=== PATIENT | female | born 1980 | race Caucasian/White ===

== ENCOUNTER → 2017-12-28 16:29 | Outpatient (CLI) | payer OTHER, SELFPAY ==
--- NOTE | 2017-12-28 16:32 | DI.RAD.S_ITS ---
PROCEDURE: XR CERVICAL SPINE 2V OR 3V INDICATIONS: neck and shoulder pain TECHNIQUE: 3 view(s) of the cervical spine were acquired. COMPARISON: None. FINDINGS: Bones: No fractures or dislocations to the T1 level. The lateral masses of C1 appear intact on the odontoid view. No suspicious bony lesions. Soft tissues: No prevertebral soft tissue swelling. IMPRESSION: No trauma found, no subluxation seen. No significant degenerative change identified. Dictated by: Raf Love M.D. on 12/28/2017 at 17:08 Approved by: Raf Love M.D. on 12/28/2017 at 17:08
== END ==
PROVIDERS: Family Provider Family Medicine; PCP Family Medicine; Visit Provider Family Medicine
DX: M54.2 Cervicalgia (principal); M25.519 Pain in unspecified shoulder
CPT/HCPCS: 72040

== ENCOUNTER → 2017-12-30 10:49 | Outpatient (CLI) | payer OTHER, SELFPAY | PROVIDERS: Family Provider Family Medicine; PCP Family Medicine; Visit Provider Family Medicine | DX: M54.2 Cervicalgia (principal); M25.519 Pain in unspecified shoulder | CPT/HCPCS: 95909 ==

== ENCOUNTER 2018-01-10 16:08 | Emergency (ER) | payer OTHER, SELFPAY ==
[2018-01-10 16:18] VITALS: BP 147/97; PULSE 82; RESP 22; TEMP 36.8; O2SAT 97
--- NOTE | 2018-01-10 17:26 | DI.RAD.S_ITS ---
PROCEDURE: XR CHEST 2V INDICATIONS: sob TECHNIQUE: 2 views of the chest were acquired. COMPARISON: [facility], , CHEST 1 VIEW, 12/11/2014, 21:14. FINDINGS: Surgical changes and devices: None. Lungs and pleura: No pleural effusions or pneumothorax. Lungs are clear. Mediastinum: Mediastinal contours are normal. Heart size is normal. Bones and chest wall: No suspicious bony abnormalities. Soft tissues appear unremarkable. IMPRESSION: 1. No acute cardiopulmonary disease. Dictated by: Vladimir Sauer M.D. on 01/10/2018 at 18:35 Approved by: Vladimir Sauer M.D. on 01/10/2018 at 18:35
--- NOTE | 2018-01-10 18:17 | ED_ITS ---
HPI - SOB/Dyspnea <DARRELL Perez - Last Filed: 01/10/18 22:04> General Chief Complaint: Shortness of Breath/Dyspnea Stated Complaint: NOT SURE WHAT IS GOING ON SOB Time Seen by Provider: 01/10/18 18:00 History of Present Illness 37-year-old female with history of anxiety and panic attacks here for having chest pain on and off over the past couple of weeks. She believes it is her anxiety that is causing this. She has been treated by her primary care provider with Celexa which she states that she has not taken over the past week as she was not happy with side effects she is having. She has also been using Ativan to control her symptoms. She reports having increased stress over the past few months due to family illnesses and stress at work. She has not been able to get into a primary care provider for further treatment. She reports that she had a padded attack earlier today however she feels more relaxed that she did earlier today she denies any chest pain or shortness of breath at this time. Related Data Previous Rx's Medication Instructions Recorded citalopram [Celexa] 0 PO QDAY #90 tab 03/24/17 cyclobenzaprine 0 mg PO TID PRN #30 tab 03/24/17 hydrochlorothiazide 25 mg PO Q DAY #90 tab 03/24/17 doxycycline hyclate 100 mg PO BID #28 cap 06/01/17 lorazepam [Ativan] 0.5 mg PO BID #30 tab 11/03/17 tramadol 50 mg PO Q8HP PRN #30 tab 11/03/17 lorazepam 1 mg tablet 1 mg PO BID #30 tab 12/30/17 Allergies Allergy/AdvReac Type Severity Reaction Status Date / Time bupropion [BUPROPION] Allergy Mild PANIC Verified 01/10/18 16:22 ATTACKS Penicillins [PENICILLINS] Allergy Mild VOMITTING Verified 01/10/18 16:22 Review of Systems <DARRELL Perez - Last Filed: 01/10/18 22:04> Constitutional Denies chills, Denies fatigue, Denies fever(s), Denies lethargy and Denies weakness Eyes Denies change in vision, Denies eye discharge, Denies irritation and Denies loss of vision Cardiovascular Reports dyspnea Respiratory Reports dyspnea Gastrointestinal Gastrointestinal: Denies abdominal pain, Denies change in bowel habits, Denies diarrhea, Denies nausea and Denies vomiting Genitourinary Denies hematuria, Denies flank pain, Denies urinary incontinence and Denies urinary urgency Musculoskeletal Denies back pain, Denies muscle weakness, Denies numbness and Denies tingling Integumentary/Breasts Denies pruritus, Denies erythema, Denies rash and Denies wounds Neurologic Denies loss of vision, Denies numbness, Denies tingling and Denies weakness Psychiatric Reports anxiety Endocrine Denies fatigue and Denies flushing Hematologic/Lymphatic Denies easy bruising Exam <DARRELL Perez - Last Filed: 01/10/18 22:04> Initial Vital Signs Initial Vital Signs: Vital Signs Temperature 98.3 F 01/10/18 16:18 Pulse Rate 82 01/10/18 16:18 Respiratory Rate 22 01/10/18 16:18 Blood Pressure 147/97 H 01/10/18 16:18 Pulse Oximetry 97 01/10/18 16:18 Const General: cooperative and well developed Nutritional Appearance: well nourished Orientation: alert, awake, oriented x3 and not confused [facility] Mouth: oral mucosae normal, oropharynx normal and moist mucous membranes Eyes Sclera: sclerae normal Cornea: corneas normal Pupils: PERRL EOM: EOM intact bilaterally Resp Effort & Inspection: normal respiratory effort, able to speak in complete sentences, no respiratory distress and no use of accessory muscles Auscultation: clear to auscultation bilaterally, no rales, no rhonchi and no wheezes Cardio Rate: regular rate Rhythm: regular rhythm Heart Sounds: no click, no gallops, no murmurs and no rubs Pulses: normal peripheral pulses Skin General: no rashes or lesions noted, No jaundice and No petechiae Neuro General: alert, oriented x3, gait normal and no focal motor deficits Speech: speech normal Psych Appearance: well kempt Mental Status: mental status grossly normal Attitude: cooperative Thought Content: normal and suicidality Judgment: judgment good <Victorino Bruce DO - Last Filed: 01/11/18 02:24> Initial Vital Signs Initial Vital Signs: Vital Signs Temperature 98.3 F 01/10/18 16:18 Pulse Rate 82 01/10/18 16:18 Respiratory Rate 22 01/10/18 16:18 Blood Pressure 147/97 H 01/10/18 16:18 Pulse Oximetry 97 01/10/18 16:18 Course <DARRELL Perez - Last Filed: 01/10/18 22:04> Orders Ordered: ED Orders 01/10/18 17:26 XR chest 2V Stat Vital Signs - 8 hr 01/10/18 18:48 Pulse Rate 62 Respiratory Rate 15 Blood Pressure [Right Arm] 110/73 Pulse Oximetry 99 <Victorino Bruce, DO - Last Filed: 01/11/18 02:24> Orders Ordered: ED Orders 01/10/18 17:26 XR chest 2V Stat Vital Signs - 8 hr 01/10/18 18:48 Pulse Rate 62 Respiratory Rate 15 Blood Pressure [Right Arm] 110/73 Pulse Oximetry 99 MDM - SOB/Dyspnea <DARRELL Perez - Last Filed: 01/10/18 22:04> MDM Narrative Medical decision making narrative: Patient with no symptoms at this time. Signs and symptoms presents as anxiety and panic attack. She is encouraged to use her Ativan for panic attacks and to either consider taking the Celexa or talk to primary care provider for do changed to a different SSRI to help control her anxiety. She is also encouraged to use relaxation techniques such as breathing exercises or aroma therapy to also help. Also discussed finding counselor to discuss her symptoms with as well. For any worsening symptoms return to the emergency room. Discharge Plan Departure Patient Disposition: Home, Self-Care Clinical Impression: Anxiety Discharge Date/Time: 01/10/18 18:50 Interventions: ED Discharge Assessment Last Done: 01/10/18 18:46 Instructions: DI for Anxiety -- Adult Activity Restrictions/Additional Instructions: The glandular feeling better at this time in the ear symptoms have resolved. Your signs and symptoms over the past few weeks present as anxiety related. Continue to use medications as prescribed if not the Celexa that I would talk with my primary care provider and discuss another SSRI. Try relaxation techniques such as breathing exercises, aroma therapy etc... Consider counselor to help deal with symptoms. For any worsening symptoms return to the emergency room. Follow up with primary care provider Prescriptions: No Action cyclobenzaprine 10 MG tablet PO TID PRNQty: 30 RF: 3 citalopram [Celexa] 20 MG tablet PO QDAY Qty: 90 RF: 3 hydrochlorothiazide 25 MG tablet 25 mg PO Q DAY Qty: 90 RF: 3 doxycycline hyclate 100 MG capsule 100 mg PO BID Qty: 28 RF: 0 tramadol 50 MG tablet 50 mg PO Q8HP PRNQty: 30 RF: 0 lorazepam [Ativan] 0.5 MG tablet 0.5 mg PO BID Qty: 30 RF: 2 lorazepam 1 mg tablet 1 mg PO BID Qty: 30 RF: 2 Referrals: Brain Marks MD [Primary Care Provider] - <Victorino Bruce DO - Last Filed: 01/11/18 02:24> Cosign ED Attending Luanature Attestation: I was immediately available in the department for consultation. Documentation has been reviewed. I agree with assessment and plan.
[2018-01-10 18:48] VITALS: BP 110/73; PULSE 62; RESP 15; O2SAT 99
== END 2018-01-10 18:50 | disposition home or self-care (01) ==
PROVIDERS: Emergency Provider Nurse Practitioner Family; Family Provider Family Medicine; PCP Family Medicine
DX: F41.9 Anxiety disorder, unspecified (principal)
CPT/HCPCS: 71046; 99282; 99283

== ENCOUNTER → 2018-03-09 11:11 | Outpatient (CLI) | payer OTHER, SELFPAY ==
[2018-03-09 14:35] LABS: Add Manual Diff / Slide Review NO; Basophils Percent Auto 0.5 % (0-2); Eosinophils Percent Auto 1.1 % (2-4); Hematocrit 42.4 % (36-46); Hemoglobin 14.7 g/dL (12.0-16.0); Lymphocytes Percent Auto 32.4 % (25-40); Mean Corpuscular HGB Conc 34.6 % (30-36); Mean Corpuscular Hemoglobin 30.1 PG (26-34); Neutrophils Absolute Auto 5500 /uL (3000-5900); Platelet Count 270 X10^3/uL (150-400); Red Blood Cell Count 4.88 X10^6/uL (4.0-5.2); Red Cell Distribution Width 12.4 % (11.6-14.8); White Blood Cell Count 9.3 X10^3/uL (4.5-11.0)
[2018-03-09 16:47] LABS: Carbon Dioxide 28 mmol/L (22-32); Chloride 97 mmol/L (98-107); Potassium 4.1 mmol/L (3.4-5.1); Sodium 138 mmol/L (137-145)
[2018-03-09 16:48] LABS: Alanine Aminotransferase 25 IU/L (9-52); Albumin 4.7 g/dL (3.5-5.0); Albumin Globulin Ratio 1.7 (1.0-2.8); Alkaline Phosphatase 41 U/L (38-126); Amylase 69 U/L (30-110); Aspartate Aminotransferase 23 IU/L (14-36); BUN Creatinine Ratio 25.7 (6-22); Bilirubin Total 0.5 mg/dL (0.2-1.3); Blood Urea Nitrogen 18 mg/dL (7-17); Estimated Glomerular Filt Rate > 60.0 mL/min (>60); Globulin 2.8 g/dL (1.7-4.1); Glucose 87 mg/dL (70-100); Total Protein 7.5 g/dL (6.3-8.2)
[2018-03-09 16:49] LABS: Lipase 204 U/L (23-300)
== END ==
PROVIDERS: PCP Family Medicine; Visit Provider Family Medicine
DX: R10.9 Unspecified abdominal pain (principal)
CPT/HCPCS: 36415; 80053; 82150; 83013; 83690; 85025

== ENCOUNTER → 2018-03-11 08:38 | Outpatient (CLI) | payer OTHER, SELFPAY ==
--- NOTE | 2018-03-11 08:40 | DI.US.S_ITS ---
PROCEDURE: US ABDOMEN COMPLETE INDICATIONS: right upper quadrant abdominal pain TECHNIQUE: Real-time scanning was performed of the abdominal and retroperitoneal organs, with image documentation. COMPARISON: [facility], US, ABDOMEN COMPLETE, 10/16/2008, 7:18. [facility], CT, ABDOMEN/PELVIS WITH CONTRAST, 02/23/2010, 14:12. FINDINGS: Liver: Liver is normal in size and homogeneous in echotexture. Gallbladder: Gallbladder is clear with normal wall thickness. Biliary ducts: Intrahepatic bile ducts are non-dilated. Extrahepatic bile duct caliber measures 4 mm. Normal is 6-7 mm or less in diameter, or 10 mm or less post-cholecystectomy. Pancreas: Visualized portions of the pancreas are sonographically normal. Spleen: Spleen is normal in size and homogeneous in echotexture. Kidneys: Kidneys are normal in size and echotexture. Right kidney measures 11.2 cm long; left kidney measures 11.7 cm long. No hydronephrosis or nephrolithiasis. No solid masses. Aorta: Visualized aorta is normal in caliber at less than 3 cm. Iliacs: Proximal common iliac arteries are normal in caliber at less than 2.5 cm. IVC: Intrahepatic inferior vena cava is patent. Miscellaneous: No free abdominal fluid. IMPRESSION: Normal abdomen ultrasound. Cause of right upper quadrant pain not seen. Dictated by: Kevin Lee M.D. on 03/11/2018 at 9:58 Approved by: Kevin Lee M.D. on 03/11/2018 at 10:00
== END ==
PROVIDERS: Family Provider Family Medicine; PCP Family Medicine; Visit Provider Family Medicine
DX: R10.11 Right upper quadrant pain (principal)
CPT/HCPCS: 76700

== ENCOUNTER 2018-03-13 16:19 | Emergency (ER) | payer OTHER, SELFPAY ==
--- NOTE | 2018-03-13 16:24 | ED.HA ---
HPI - Headache <DARRELL Perez - Last Filed: 03/13/18 22:28> General Chief Complaint: Headache Stated Complaint: STATES HEADAHCE BEHIND RIGHT EYE,BLURRY VISION Time Seen by Provider: 03/13/18 16:21 Source: patient Mode of arrival: ambulatory Limitations: no limitations History of Present Illness HPI Narrative: 37-year-old female complains of having right-sided headache for the last month. She denies any stressors or relievers of the headache. She reports that the headache has worsened over the past week. She also reports she has pain into her right ear and to her right mastoid area. No fevers no chills. She states she has had some nausea however no vomiting. She does state that she has a history of having migraine headaches when she was young she has not had any for several years. Positive p.o. intake. She denies any head trauma. She does state that she has had increased stress over the past several weeks. She denies any drainage from the right ear. She does report having seasonal allergies and having some sinus congestion over the same timeframe. MD Complaint: headache Related Data Previous Rx's Medication Instructions Recorded cyclobenzaprine 0 mg PO TID PRN #30 tab 03/24/17 hydrochlorothiazide 25 mg PO Q DAY #90 tab 03/24/17 tramadol 50 mg PO Q8HP PRN #30 tab 11/03/17 lorazepam 1 mg tablet 1 mg PO BID #120 tab 01/12/18 hydroxyzine pamoate 25 mg capsule See Label Instructions PO TID-QID 02/14/18 PRN #120 cap omeprazole 20 mg capsule,delayed 20 mg PO BID #60 cap 03/08/18 release ondansetron 4 mg PO Q6-8H PRN #10 tab 03/13/18 Allergies Allergy/AdvReac Type Severity Reaction Status Date / Time bupropion [BUPROPION] Allergy Mild PANIC Verified 02/28/18 11:00 ATTACKS Penicillins [PENICILLINS] Allergy Mild VOMITTING Verified 02/28/18 11:00 Review of Systems <DARRELL Perez - Last Filed: 03/13/18 22:28> Constitutional Denies chills, Denies fever(s), Reports headache(s), Denies lethargy and Denies weakness Eyes Denies change in vision, Denies eye discharge, Denies irritation and Denies loss of vision ENT Ears, Nose, Mouth, and Throat: Reports otalgia and Reports headache(s) Cardiovascular Denies chest pain, Denies irregular heart rhythm, Denies lightheadedness, Denies palpitations, Denies dyspnea, Denies dyspnea on exertion and Denies orthopnea Respiratory Denies cough, Denies dyspnea, Denies dyspnea on exertion and Denies wheezing Gastrointestinal Gastrointestinal: Denies abdominal pain, Denies change in bowel habits, Denies diarrhea, Denies nausea and Denies vomiting Genitourinary Denies hematuria, Denies flank pain, Denies urinary incontinence and Denies urinary urgency Musculoskeletal Denies back pain, Denies muscle weakness, Denies numbness and Denies tingling Integumentary/Breasts Denies pruritus, Denies erythema, Denies rash and Denies wounds Neurologic Denies confusion, Reports headache(s), Denies loss of vision, Denies numbness, Denies tingling and Denies weakness Psychiatric Denies anxiety, Denies confusion, Denies depression, Denies homicidal ideation and Denies suicidal ideation Endocrine Denies palpitations Hematologic/Lymphatic Denies easy bruising Allergic/Immunologic Denies wheezing Exam <DARRELL Perez - Last Filed: 03/13/18 22:28> Initial Vital Signs Initial Vital Signs: Vital Signs Temperature 98.0 F 03/13/18 16:29 Pulse Rate 64 03/13/18 16:29 Respiratory Rate 18 03/13/18 16:29 Blood Pressure 143/93 H 03/13/18 16:29 Pulse Oximetry 100 03/13/18 16:29 Const General: cooperative and well developed Nutritional Appearance: well nourished Orientation: alert, awake, oriented x3 and not confused [facility] Head: normocephalic, atraumatic and other (Tenderness on palpation to right mastoid area, no swelling or erythema to the mastoid) Ears: external ears normal and TM's normal bilaterally Nose: external nose normal and No nasal discharge Face and sinus: sinuses nontender, face symmetric, no sinus tenderness and No dry mucous membranes Mouth: oral mucosae normal and moist mucous membranes Teeth and gingiva: dentition normal Throat: tonsils normal and uvula midline Eyes General: appearance normal, both eyes and all related structures Eyelids: eyelids normal Conjunctivae: conjunctivae normal Sclera: sclerae normal Pupils: PERRL EOM: EOM intact bilaterally Neck Neck: normal visual inspection, trachea midline, No lymphadenopathy, No midline deformity and No JVD Lymphatic: No lymphedema Resp Effort & Inspection: normal respiratory effort, able to speak in complete sentences, no respiratory distress and no use of accessory muscles Auscultation: clear to auscultation bilaterally, no rales, no rhonchi and no wheezes Cardio Rate: regular rate Rhythm: regular rhythm Heart Sounds: no click, no gallops, no murmurs and no rubs Skin General: no rashes or lesions noted, No jaundice and No petechiae Neuro General: alert, oriented x3, gait normal and no focal motor deficits Speech: speech normal <DO Misbah Harmon Last Filed: 03/14/18 07:12> Initial Vital Signs Initial Vital Signs: Vital Signs Temperature 98.0 F 03/13/18 16:29 Pulse Rate 64 03/13/18 16:29 Respiratory Rate 18 03/13/18 16:29 Blood Pressure 143/93 H 03/13/18 16:29 Pulse Oximetry 100 03/13/18 16:29 Course <DARRELL Perez - Last Filed: 03/13/18 22:28> Orders Ordered: Discontinued Medications Ketorolac Tromethamine (Toradol) 30 mg IV NOW ONE Stop: 03/13/18 17:08 Last Admin: 03/13/18 17:14 Dose: 30 mg Ondansetron HCl (Zofran) 4 mg IV NOW ONE Stop: 03/13/18 17:08 Last Admin: 03/13/18 17:14 Dose: 4 mg Ondansetron HCl (Zofran Odt Prepack) 1 bottle MISC SEEINSTR ONE Stop: 03/13/18 18:17 Last Admin: 03/13/18 18:18 Dose: 1 bottle Vital Signs - 8 hr 03/13/18 16:29 03/13/18 18:20 Temperature 98.0 F Pulse Rate 64 55 L Respiratory Rate 18 18 Blood Pressure 143/93 H 115/71 Pulse Oximetry 100 96 <Joshua Cox DO - Last Filed: 03/14/18 07:12> Orders Ordered: Discontinued Medications Ketorolac Tromethamine (Toradol) 30 mg IV NOW ONE Stop: 03/13/18 17:08 Last Admin: 03/13/18 17:14 Dose: 30 mg Ondansetron HCl (Zofran) 4 mg IV NOW ONE Stop: 03/13/18 17:08 Last Admin: 03/13/18 17:14 Dose: 4 mg Ondansetron HCl (Zofran Odt Prepack) 1 bottle MISC SEEINSTR ONE Stop: 03/13/18 18:17 Last Admin: 03/13/18 18:18 Dose: 1 bottle Vital Signs - 8 hr 03/13/18 16:29 03/13/18 18:20 Temperature 98.0 F Pulse Rate 64 55 L Respiratory Rate 18 18 Blood Pressure 143/93 H 115/71 Pulse Oximetry 100 96 MDM - Headache <DARRELL Perez - Last Filed: 03/13/18 22:28> Lab Data Result diagrams: 03/13/18 16:45 03/13/18 16:45 Lab Results 03/13/18 03/13/18 Range/Units 16:45 16:45 WBC 12.3 H (4.5-11.0) X10^3/uL RBC 4.90 (4.0-5.2) X10^6/uL Hgb 14.6 (12.0-16.0) g/dL Hct 41.9 (36-46) % MCV 85.6 (80-100) fL MCH 29.9 (26-34) PG MCHC 34.9 (30-36) % RDW 12.6 (11.6-14.8) % Plt Count 276 (150-400) X10^3/uL Neut % (Auto) 62.8 (50-75) % Lymph % (Auto) 28.5 (25-40) % [place] % (Auto) 6.7 (3-14) % Eos % (Auto) 1.5 L (2-4) % Baso % (Auto) 0.5 (0-2) % Neut # (Auto) 7700 H (1505-1290) /uL Sodium 141 (137-145) mmol/L Potassium 3.5 (3.4-5.1) mmol/L Chloride 100 (98-107) mmol/L Carbon Dioxide 27 (22-32) mmol/L BUN 19 H (7-17) mg/dL Creatinine 0.80 (0.52-1.04) mg/dL Estimated GFR > 60.0 (>60) mL/min BUN/Creatinine Ratio 23.8 H (6-22) Glucose 96 (70-100) mg/dL Calcium 9.6 (8.4-10.2) mg/dL Total Bilirubin 0.3 (0.2-1.3) mg/dL AST 27 (14-36) IU/L ALT 24 (9-52) IU/L Alkaline Phosphatase 35 L (38-126) U/L Total Protein 7.5 (6.3-8.2) g/dL Albumin 4.8 (3.5-5.0) g/dL Globulin 2.7 (1.7-4.1) g/dL Albumin/Globulin Ratio 1.8 (1.0-2.8) Imaging Data CT scan - head: Radiologist's impression: Patient: Mariann Gordon MR#: [id number] : 1980 Acct:[id number] Age/Sex: 37 / F Date of Service: 03/13/18 Loc: ED Accession Number: [id number] Procedure: CT head/brain w con Ordering Provider: Vipin Chase PROCEDURE: CT HEAD/BRAIN W CON INDICATIONS: Right-sided headache with pain to right ear and mastoid area TECHNIQUE: 4.5 mm thick angled axial sections acquired from the foramen magnum to the vertex after the administration of intravenous contrast, with coronal and sagittal reformats. For radiation dose reduction, the following was used: automated exposure control, adjustment of mA and/or kV according to patient size. COMPARISON: [facility], , MRI HEAD W/O, 12/22/2002, 10:13. FINDINGS: Image quality: Excellent. CSF Spaces: Basal cisterns are patent. No extra-axial fluid collections. Ventricles are normal in size and shape. Brain: No midline shift. No intracranial bleeds or masses. No abnormal intracranial enhancement. Lee-white interface appears normal. Skull and face: Calvarium and visualized facial bones appear intact, without suspicious lesions. Sinuses: Visualized sinuses and mastoids are clear. IMPRESSION: 1. No acute intracranial disease process. 2. Mastoids are clear bilaterally. Dictated by: Rena Cobb MD, PhD on 03/13/2018 at 17:30 Approved by: Rena Cobb MD, PhD on 03/13/2018 at 17:32 MDM Narrative Medical decision making narrative: CBC shows slightly elevated white count of 12 K otherwise CBC and Chem panel were unremarkable. CT the head with contrast was obtained and was negative for any acute findings to the mastoids are intracranially. She was given Zofran in the emergency room which helped with her nausea. Differential between tension type headache or headache with migraine components. Other differential is headache due to congestion secondary to seasonal allergies which she is already taking a antihistamine for. She has cyclobenzaprine at home are any prescribed she may try to see if it helps muscle tension to her neck and back of head for tension-type headache. Plenty of fluids and rest [id number] Tylenol and Motrin. Home to quiet environment. Follow up with primary care provider later this week for re-evaluation. For any worsening symptoms return to the emergency room. <Joshua Cox DO - Last Filed: 03/14/18 07:12> Lab Data Lab Results 03/13/18 03/13/18 Range/Units 16:45 16:45 WBC 12.3 H (4.5-11.0) X10^3/uL RBC 4.90 (4.0-5.2) X10^6/uL Hgb 14.6 (12.0-16.0) g/dL Hct 41.9 (36-46) % MCV 85.6 (80-100) fL MCH 29.9 (26-34) PG MCHC 34.9 (30-36) % RDW 12.6 (11.6-14.8) % Plt Count 276 (150-400) X10^3/uL Neut % (Auto) 62.8 (50-75) % Lymph % (Auto) 28.5 (25-40) % [place] % (Auto) 6.7 (3-14) % Eos % (Auto) 1.5 L (2-4) % Baso % (Auto) 0.5 (0-2) % Neut # (Auto) 7700 H (8513-6767) /uL Sodium 141 (137-145) mmol/L Potassium 3.5 (3.4-5.1) mmol/L Chloride 100 (98-107) mmol/L Carbon Dioxide 27 (22-32) mmol/L BUN 19 H (7-17) mg/dL Creatinine 0.80 (0.52-1.04) mg/dL Estimated GFR > 60.0 (>60) mL/min BUN/Creatinine Ratio 23.8 H (6-22) Glucose 96 (70-100) mg/dL Calcium 9.6 (8.4-10.2) mg/dL Total Bilirubin 0.3 (0.2-1.3) mg/dL AST 27 (14-36) IU/L ALT 24 (9-52) IU/L Alkaline Phosphatase 35 L (38-126) U/L Total Protein 7.5 (6.3-8.2) g/dL Albumin 4.8 (3.5-5.0) g/dL Globulin 2.7 (1.7-4.1) g/dL Albumin/Globulin Ratio 1.8 (1.0-2.8) Discharge Plan Departure Patient Disposition: Home, Self-Care Clinical Impression: Headache Discharge Date/Time: 03/13/18 18:22 Interventions: ED Discharge Assessment Last Done: 03/13/18 18:20 Instructions: DI for Headache Activity Restrictions/Additional Instructions: Laboratory results shows slightly elevated white count otherwise was unremarkable. CT of the head was negative for any acute findings. Differential between migraine/tension or headache secondary to seasonal allergies and nasal congestion. Use [id number] Tylenol Motrin as needed for any discomfort. Zofran is prescribed to help with nausea use as directed. Home to quite environment for rest and plenty of fluids. May use cyclobenzaprine that she would have at home to see if it helps with attention to the neck and back of head. Use antihistamine as already directed for seasonal allergies. Follow up with her primary care provider later this week for re-evaluation. For any worsening symptoms return to the emergency room. Prescription like chronically sent to [facility] Prescriptions: New ondansetron 4 mg tablet,disintegrating 4 mg PO Q6-8H PRN (Reason: nausea and vomiting) Qty: 10 RF: 0 No Action cyclobenzaprine 10 MG tablet PO TID PRNQty: 30 RF: 3 hydrochlorothiazide 25 MG tablet 25 mg PO Q DAY Qty: 90 RF: 3 tramadol 50 MG tablet 50 mg PO Q8HP PRNQty: 30 RF: 0 lorazepam 1 mg tablet 1 mg PO BID Qty: 120 RF: 2 hydroxyzine pamoate 25 mg capsule See Label Instructions PO TID-QID PRN (Reason: anxiety) Qty: 120 RF: 5 omeprazole 20 mg capsule,delayed release(DR/EC) 20 mg PO BID Qty: 60 RF: 5 Referrals: Brain Marks MD [Primary Care Provider] - <Joshua Cox DO - Last Filed: 03/14/18 07:12> Cosign ED Attending Kendra Attestation: I was available for consultation during this patient's emergency department encounter
[2018-03-13 16:29] VITALS: BP 143/93; PULSE 64; RESP 18; TEMP 36.7; O2SAT 100
--- NOTE | 2018-03-13 16:33 | DI.CT.S_ITS ---
PROCEDURE: CT HEAD/BRAIN W CON INDICATIONS: Right-sided headache with pain to right ear and mastoid area TECHNIQUE: 4.5 mm thick angled axial sections acquired from the foramen magnum to the vertex after the administration of intravenous contrast, with coronal and sagittal reformats. For radiation dose reduction, the following was used: automated exposure control, adjustment of mA and/or kV according to patient size. COMPARISON: [facility], , MRI HEAD W/O, 12/22/2002, 10:13. FINDINGS: Image quality: Excellent. CSF Spaces: Basal cisterns are patent. No extra-axial fluid collections. Ventricles are normal in size and shape. Brain: No midline shift. No intracranial bleeds or masses. No abnormal intracranial enhancement. Lee-white interface appears normal. Skull and face: Calvarium and visualized facial bones appear intact, without suspicious lesions. Sinuses: Visualized sinuses and mastoids are clear. IMPRESSION: 1. No acute intracranial disease process. 2. Mastoids are clear bilaterally. Dictated by: Rena Cobb MD, PhD on 03/13/2018 at 17:30 Approved by: Rena Cobb MD, PhD on 03/13/2018 at 17:32
[2018-03-13 17:04] LABS: Add Manual Diff / Slide Review NO; Basophils Percent Auto 0.5 % (0-2); Eosinophils Percent Auto 1.5 % (2-4); Hematocrit 41.9 % (36-46); Hemoglobin 14.6 g/dL (12.0-16.0); Lymphocytes Percent Auto 28.5 % (25-40); Mean Corpuscular HGB Conc 34.9 % (30-36); Mean Corpuscular Hemoglobin 29.9 PG (26-34); Mean Corpuscular Volume 85.6 fL (80-100); Monocytes Percent Auto 6.7 % (3-14); Neutrophils Absolute Auto 7700 /uL (3000-5900); Neutrophils Percent Auto 62.8 % (50-75); Platelet Count 276 X10^3/uL (150-400); Red Cell Distribution Width 12.6 % (11.6-14.8); White Blood Cell Count 12.3 X10^3/uL (4.5-11.0)
[2018-03-13 17:11] LABS: Alanine Aminotransferase 24 IU/L (9-52); Albumin 4.8 g/dL (3.5-5.0); Albumin Globulin Ratio 1.8 (1.0-2.8); Alkaline Phosphatase 35 U/L (38-126); Aspartate Aminotransferase 27 IU/L (14-36); BUN Creatinine Ratio 23.8 (6-22); Bilirubin Total 0.3 mg/dL (0.2-1.3); Blood Urea Nitrogen 19 mg/dL (7-17); Calcium 9.6 mg/dL (8.4-10.2); Carbon Dioxide 27 mmol/L (22-32); Chloride 100 mmol/L (98-107); Estimated Glomerular Filt Rate > 60.0 mL/min (>60); Globulin 2.7 g/dL (1.7-4.1); Glucose 96 mg/dL (70-100); HEMOLYSIS < 15 (0-50); Potassium 3.5 mmol/L (3.4-5.1); Sodium 141 mmol/L (137-145); Total Protein 7.5 g/dL (6.3-8.2)
[2018-03-13] MEDS: ONDANSETRON 4 MG/2 ML INJ IV (17:14)
[2018-03-13] MEDS: KETOROLAC 60 MG/2 ML VIAL 30 MG IV (17:14)
[2018-03-13] MEDS: ONDANSETRON 4 MG ODT PREPACK 1 BOTTLE MISC (18:18)
[2018-03-13 18:20] VITALS: BP 115/71; PULSE 55; RESP 18; O2SAT 96
== END 2018-03-13 18:22 | disposition home or self-care (01) ==
PROVIDERS: Emergency Provider Nurse Practitioner Family; Family Provider Family Medicine; PCP Family Medicine
DX: R51 Headache (principal)
CPT/HCPCS: 36591; 70460; 80053; 81003; 81025; 85025; 96374; 96375; 99283; 99285; J1885; J2405

== ENCOUNTER → 2018-04-21 08:04 | Outpatient (CLI) | payer OTHER, SELFPAY ==
--- NOTE | 2018-04-21 | DI.MG.S_ITS ---
BILATERAL DIGITAL SCREENING MAMMOGRAM 3D/2D WITH CAD: 04/21/2018 CLINICAL: Baseline exam. Routine screening. No prior exams were available for comparison. There are scattered fibroglandular elements in both breasts. Current study was also evaluated with a Computer Aided Detection (CAD) system. No significant masses, calcifications, or other findings are seen in either breast. IMPRESSION: NEGATIVE There is no mammographic evidence of malignancy. A 1 year screening mammogram is recommended. This exam was interpreted at Station ID: [id number]. NOTE: For mammograms, a report in lay terms will be sent to the patient. Approximately 15% of breast malignancies will not be visualized mammographically. In the management of a palpable breast mass, a negative mammogram must not discourage biopsy of a clinically suspicious lesion. Electronically Signed By: Vladimir [email or web address]:04/21/2018 10:08:12 letter sent: Normal Exam ACR BI-RADS Category 1: Negative [id number]
== END ==
PROVIDERS: Family Provider Family Medicine; PCP Family Medicine; Visit Provider Family Medicine
DX: Z12.31 Encounter for screening mammogram for malignant neoplasm of breast (principal)
CPT/HCPCS: 77063; 77067

== ENCOUNTER → 2018-04-26 15:44 | Outpatient (CLI) | payer OTHER, SELFPAY ==
--- NOTE | 2018-04-26 15:45 | DI.MRI.S_ITS ---
PROCEDURE: MR HEAD/BRAIN WO CON INDICATIONS: Headaches. Bilateral upper extremity tremor. Right arm/hand numbness TECHNIQUE: Noncontrast axial T1 spin echo, axial T2 fast spin echo, sagittal and axial FLAIR, coronal T2 fast spin echo, axial gradient echo, axial diffusion and ADC through the brain. COMPARISON: [facility], CT, CT HEAD/BRAIN W CON, 03/13/2018, 16:36. [facility], MR, BRAIN WITH AND WITHOUT CONTRAS, 12/01/2007, 7:41. FINDINGS: Image quality: Excellent. CSF Spaces: Basal cisterns are patent. No extra-axial fluid collections. Ventricles are normal in size and shape. Brain: No intracranial masses or hemorrhage. Lee/white matter interface is normal. Brainstem appears normal. Diffusion-weighted images demonstrate no acute ischemic insult. No areas of encephalomalacia. No GRE weighted abnormalities identified in the brain parenchyma. Normal intravascular flow voids are present. Skull and face: Calvarium has normal marrow signal. Orbits appear normal. Sinuses: Sinuses and mastoids are clear. IMPRESSION: 1. No intracranial disease process. 2. No abnormal intracranial mass 3. No abnormal intracranial signal. Dictated by: Rena Cobb MD, PhD on 04/26/2018 at 16:32 Approved by: Rena Cobb MD, PhD on 04/26/2018 at 16:36
== END ==
PROVIDERS: Family Provider Family Medicine; PCP Family Medicine; Visit Provider Family Medicine
DX: R25.1 Tremor, unspecified (principal); R51 Headache; R20.0 Anesthesia of skin
CPT/HCPCS: 70551

== ENCOUNTER → 2018-06-04 11:38 | Outpatient (CLI) | payer OTHER, SELFPAY | PROVIDERS: Family Provider Family Medicine; PCP Family Medicine; Visit Provider Physician Assistant | DX: N39.0 Urinary tract infection, site not specified (principal) | CPT/HCPCS: 87086 ==

== ENCOUNTER → 2018-06-15 14:02 | Outpatient (CLI) | payer OTHER, SELFPAY ==
[2018-06-15 14:25] LABS: Add Manual Diff / Slide Review NO; Basophils Percent Auto 0.7 % (0-2); Eosinophils Percent Auto 0.8 % (2-4); Hematocrit 44.3 % (36-46); Hemoglobin 14.9 g/dL (12.0-16.0); Lymphocytes Percent Auto 25.8 % (25-40); Mean Corpuscular HGB Conc 33.6 % (30-36); Mean Corpuscular Hemoglobin 29.1 PG (26-34); Mean Corpuscular Volume 86.9 fL (80-100); Neutrophils Absolute Auto 8200 /uL (3000-5900); Neutrophils Percent Auto 67.7 % (50-75); Platelet Count 359 X10^3/uL (150-400); Red Cell Distribution Width 12.4 % (11.6-14.8); White Blood Cell Count 12.1 X10^3/uL (4.5-11.0)
[2018-06-15 14:42] LABS: Erythrocyte Sedimentation Rate 2 MM/HR (0-20)
[2018-06-15 14:46] LABS: Alanine Aminotransferase 32 IU/L (9-52); Albumin 4.7 g/dL (3.5-5.0); Albumin Globulin Ratio 1.7 (1.0-2.8); Alkaline Phosphatase 39 U/L (38-126); Amylase 94 U/L (30-110); Aspartate Aminotransferase 28 IU/L (14-36); Bilirubin Total 0.3 mg/dL (0.2-1.3); Blood Urea Nitrogen 14 mg/dL (7-17); C-Reactive Protein Quant < 0.5 mg/dL (<1.0); Calcium 9.1 mg/dL (8.4-10.2); Carbon Dioxide 27 mmol/L (22-32); Chloride 97 mmol/L (98-107); Estimated Glomerular Filt Rate > 60.0 mL/min (>60); Globulin 2.7 g/dL (1.7-4.1); Glucose 100 mg/dL (70-100); HEMOLYSIS < 15 (0-50); Lipase 241 U/L (23-300); Potassium 3.4 mmol/L (3.4-5.1); Sodium 139 mmol/L (137-145); Total Protein 7.4 g/dL (6.3-8.2)
[2018-06-15 15:37] LABS: Free T3, Triiodothyronine Free 3.29 pg/mL (2.77-5.27); Free T4, Direct Thyroxine 1.04 ng/dL (0.78-2.19); Thyroid Stimulating Hormone 2.22 uIU/mL (0.47-4.68)
[2018-06-15 15:38] LABS: Cortisol Random 9.89 ug/dL
[2018-06-17 15:06] LABS: Adrenocorticotropic Hormone 26 pg/mL (6-50)
== END ==
PROVIDERS: PCP Family Medicine; Visit Provider Family Medicine
DX: F41.9 Anxiety disorder, unspecified (principal)
CPT/HCPCS: 36415; 80053; 82024; 82150; 82533; 83690; 84439; 84443; 84481; 85025; 85651; 86140

== ENCOUNTER → 2018-09-16 15:54 | Outpatient (CLI) | payer OTHER, SELFPAY ==
[2018-09-21 14:34] LABS: Hepatitis B Core IgM Nonreactive (Nonreactive)
[2018-09-23 16:08] LABS: Hepatitis A Antibody IgM NONREACTIVE (NONREACTIVE); Hepatitis Acute Panel Interp 0.01 (NONREACTIVE); Hepatitis B Core Antibody IgM NONREACTIVE (NONREACTIVE); Hepatitis B Surface Antigen NONREACTIVE (NONREACTIVE); Hepatitis C Antibody NONREACTIVE
== END ==
PROVIDERS: PCP Family Medicine; Visit Provider Family Medicine
DX: F32.9 Major depressive disorder, single episode, unspecified (principal); B19.20 Unspecified viral hepatitis C without hepatic coma
CPT/HCPCS: 36415; 80074; 86705

== ENCOUNTER → 2018-09-20 09:57 | Outpatient (CLI) | payer OTHER, SELFPAY ==
[2018-09-20 11:24] LABS: Appearance Urine UA CLOUDY; Bilirubin Urine UA NEGATIVE (NEGATIVE); Color Urine UA YELLOW; Glucose Urine UA NEGATIVE (Negative); Ketones Urine UA NEGATIVE (NEGATIVE); Leukocyte Esterase Urine UA 2+ (NEGATIVE); Nitrite Urine UA NEGATIVE (Negative); Occult Blood Urine UA TRACE-INTACT (Negative); Protein Urine UA NEGATIVE (Negative); Specific Gravity Urine UA 1.015 (1.000-1.035); Urobilinogen Urine UA 0.2 E.U./dL (0.2); pH Urine UA 5.5 (4.5-8.0)
[2018-09-20 11:25] LABS: Bacteria Urine Many (>30); RBC Urine 5-10/HPF (0-5/HPF); Squamous Epithelial Cell Urine 1-5 /HPF; WBC Urine >100/HPF (0-5/HPF)
[2018-09-20 11:26] LABS: Culture Indicated Urine Specimen Cultured
== END ==
PROVIDERS: PCP Family Medicine; Visit Provider Family Medicine
DX: R30.0 Dysuria (principal); R31.9 Hematuria, unspecified
CPT/HCPCS: 81001; 81015; 87077; 87086; 87186

== ENCOUNTER → 2018-09-23 07:36 | Outpatient (CLI) | payer OTHER, SELFPAY ==
--- NOTE | 2018-09-23 | DI.CT.S_ITS ---
PROCEDURE: CT ABDOMEN PELVIS WO/W CON INDICATIONS: HEMATURIA TECHNIQUE: Optional 5 mm thick noncontrast images acquired from the diaphragm to the symphysis pubis. After the administration of intravenous contrast, 5 mm thick images acquired from the diaphragm to the symphysis pubis after a 10-minute delay. 2 mm thick coronal and sagittal reformats were then performed of the kidneys and ureters. For radiation dose reduction, the following was used: automated exposure control, adjustment of mA and/or kV according to patient size. COMPARISON: [facility], CT, ABDOMEN/PELVIS WITH CONTRAST, 02/23/2010, 14:12. FINDINGS: Image quality: Excellent. Lung bases: No acute consolidation. Scattered subsegmental atelectasis and/or scarring. Heart size is normal. Urinary system: Both kidneys are normal in size, without hydronephrosis or nephrolithiasis on pre-contrast images. No perinephric fat stranding. There is normal bilateral renal enhancement. Renal calyces appear normal in morphology when filled with contrast. Opacified portions of both ureters demonstrate normal caliber. Bladder wall thickness is normal. No calcified bladder stones. Other solid organs: Liver is normal in size and enhancement. Gallbladder unremarkable. Biliary system is non dilated. Pancreas enhances normally. Spleen is normal in size and enhancement. No adrenal nodules. Peritoneum and bowel: Bowel loops demonstrate normal wall thickness and caliber. No free fluid or air. Appendix is not clearly identified however no suspicious pericecal inflammatory changes are identified Nodes and vessels: No retroperitoneal or mesenteric adenopathy by size criteria. Aorta and inferior vena cava are normal in size. Abdominal wall: No ventral hernias. Pelvis: No pathologic free pelvic fluid. No inguinal hernias or adenopathy. Bones: No suspicious bony lesions. No vertebral body compression fractures. IMPRESSION: No urolithiasis. No evidence of urinary obstruction. No specific visualized etiology for clinical reported hematuria. Dictated by: Elieser Pop M.D. on 09/23/2018 at 9:06 Approved by: Elieser Pop M.D. on 09/23/2018 at 9:12
[2018-09-23 09:37] LABS: Hep C Virus Ab w/Reflex Quant NEGATIVE s/c (NEGATIVE)
== END ==
PROVIDERS: Family Provider Family Medicine; PCP Family Medicine; Visit Provider Urology
DX: R31.9 Hematuria, unspecified (principal); Z20.5 Contact with and (suspected) exposure to viral hepatitis
CPT/HCPCS: 36415; 74178; 86803; Q9967

== ENCOUNTER → 2019-02-23 08:31 | Outpatient (CLI) | payer OTHER, SELFPAY ==
[2019-02-23 09:05] LABS: Cholesterol 205 mg/dL (140-199); HDL Cholesterol 46 mg/dL (40-60); LDL Cholesterol Calculated 128 mg/dL (<100); Triglycerides 154 mg/dL (35-150)
[2019-02-23 10:44] LABS: Thyroid Stimulating Hormone 2.62 uIU/mL (0.47-4.68)
== END ==
PROVIDERS: PCP Family Medicine; Visit Provider Family Medicine
DX: R60.9 Edema, unspecified (principal)
CPT/HCPCS: 36415; 80061; 84443

== ENCOUNTER → 2019-05-18 16:24 | Outpatient (CLI) | payer OTHER, SELFPAY ==
[2019-05-18 20:28] LABS: Adenovirus F 40/41 Not Detected (Not Detect); Astrovirus Not Detected (Not Detect); Campylobacter Not Detected (Not Detect); Clostridium difficile toxin AB Not Detected (Not Detect); Cryptosporidium Not Detected (Not Detect); Cyclospora cayetanensis Not Detected (Not Detect); Entamoeba histolytica Not Detected (Not Detect); Enteroaggregative E.coli Not Detected (Not Detect); Enteropathogenic E.coli Not Detected (Not Detect); Enterotoxigenic E.coli It/st Not Detected (Not Detect); Giardia lamblia Not Detected (Not Detect); Norovirus GI/GII Not Detected (Not Detect); Plesiomonsa shigelloides Not Detected (Not Detect); Rotavirus A Not Detected (Not Detect); Salmonella Not Detected (Not Detect); Shiga-like toxin-prod E.coli Not Detected (Not Detect); Shigella/Enteroinvasive E.coli Not Detected (Not Detect); Vibrio Not Detected (Not Detect); Vibrio cholerae Not Detected (Not Detect); Yersinia enterocolitica Not Detected (Not Detect)
== END ==
PROVIDERS: PCP Family Medicine; Visit Provider Family Medicine
DX: Z11.59 Encounter for screening for other viral diseases (principal)
CPT/HCPCS: 87507

== ENCOUNTER → 2019-06-15 16:14 | Outpatient (CLI) | payer OTHER, SELFPAY ==
[2019-06-15 16:41] LABS: Add Manual Diff / Slide Review NO; Basophils Absolute Auto 100 /uL (0-100); Basophils Percent Auto 0.9 % (0-2); Eosinophils Absolute Auto 100 /uL (0-450); Hematocrit 42.9 % (36-46); Hemoglobin 14.7 g/dL (12.0-16.0); Lymphocytes Absolute Auto 3600 /uL (1100-4500); Lymphocytes Percent Auto 31.8 % (25-40); Mean Corpuscular HGB Conc 34.3 % (30-36); Mean Corpuscular Hemoglobin 29.9 PG (26-34); Mean Corpuscular Volume 87.2 fL (80-100); Monocytes Absolute Auto 700 /uL (0-900); Neutrophils Absolute Auto 6900 /uL (1500-7000); Neutrophils Percent Auto 60.3 % (50-75); Platelet Count 295 X10^3/uL (150-400); Red Blood Cell Count 4.93 X10^6/uL (4.0-5.2); Red Cell Distribution Width 12.5 % (11.6-14.8); White Blood Cell Count 11.4 X10^3/uL (4.5-11.0)
[2019-06-15 16:56] LABS: Erythrocyte Sedimentation Rate 3 MM/HR (0-20)
[2019-06-15 17:22] LABS: Alanine Aminotransferase 19 IU/L (9-52); Albumin 4.9 g/dL (3.5-5.0); Alkaline Phosphatase 41 U/L (38-126); Aspartate Aminotransferase 28 IU/L (14-36); BUN Creatinine Ratio 22.5 (6-22); Bilirubin Total 0.4 mg/dL (0.2-1.3); Blood Urea Nitrogen 18 mg/dL (7-17); Calcium 9.8 mg/dL (8.4-10.2); Carbon Dioxide 28 mmol/L (22-32); Chloride 100 mmol/L (98-107); Estimated Glomerular Filt Rate > 60.0 mL/min (>60); Globulin 2.5 g/dL (1.7-4.1); Glucose 88 mg/dL (70-100); HEMOLYSIS < 15 (0-50); Potassium 3.9 mmol/L (3.4-5.1); Sodium 140 mmol/L (137-145); Total Protein 7.4 g/dL (6.3-8.2)
[2019-06-15 17:26] LABS: Rheumatoid Factor < 8.6 IU/mL (<12.0)
[2019-06-15 17:38] LABS: C-Reactive Protein Quant < 0.5 mg/dL (<1.0)
[2019-06-18 14:19] LABS: ANA Screen, IFA NEGATIVE (NEGATIVE)
== END ==
PROVIDERS: PCP Family Medicine; Visit Provider Family Medicine
DX: M25.50 Pain in unspecified joint (principal)
CPT/HCPCS: 36415; 80053; 84443; 85025; 85651; 86038; 86140; 86226; 86430

== ENCOUNTER → 2019-06-24 09:04 | Outpatient (CLI) | payer OTHER, SELFPAY ==
--- NOTE | 2019-06-24 09:06 | DI.RAD.S_ITS ---
PROCEDURE: XR HIP W PEL IF DONE LT MIN 4V INDICATIONS: Arthralgias TECHNIQUE: AP pelvis with lateral view(s) of both hip(s). COMPARISON: None. FINDINGS: Bones: No fractures or dislocations. Pelvic ring appears intact. No suspicious bony lesions. The hip joint spaces are well-preserved. No significant hip joint irregularity can be seen. Soft tissues: The visualized bowel gas pattern is normal. No suspicious soft tissue calcifications. IMPRESSION: Normal appearing hips by plain film. If it would be helpful for clinical management decision making, please consider a dedicated MRI for further evaluation (assuming that there is no contraindication). If there is strong clinical concern for a labral abnormality, this should be performed according to the arthrogram protocol. Dictated by: Aurelio Jorge M.D. on 06/24/2019 at 12:46 Approved by: Aurelio Jorge M.D. on 06/24/2019 at 12:47
== END ==
PROVIDERS: Family Provider Internal Medicine Rheumatology; PCP Family Medicine; Visit Provider Family Medicine
DX: M25.50 Pain in unspecified joint (principal)
CPT/HCPCS: 73522